=== PATIENT | female | born 1990 | race Caucasian/White ===

== ENCOUNTER 2022-08-18 08:05 | Outpatient (CLI) | payer BC ==
[2022-08-18 09:47] LABS: BHCG - Serum Negative (NEGATIVE); Pregs Control Background? CLEAR/WHITE (CLR/WHITE); Pregs Control Bar Appear? YES (CONTROL BAR)
== END 2022-08-18 08:06 | disposition home or self-care (01) ==
LOC: LABBT 08:05
PROVIDERS: ATTEND Orthopaedic Surgery Hand Surgery
DX: Z01.812 Encounter for preprocedural laboratory examination (principal); M77.8 Other enthesopathies, not elsewhere classified
CPT/HCPCS: 84703

== ENCOUNTER 2022-08-21 12:51 | Day surgery (SDC) | payer BC ==
[2022-08-17 14:54] VITALS: BMI 29.2
[2022-08-21] MEDS ORDERED: Midazolam HCl 2 mg/2 ml Vial ONE (15:32)
[2022-08-21] MEDS ORDERED: fentaNYL PF 100 MCG/2 ML SYRINGE ONE (15:32)
[2022-08-21] MEDS ORDERED: Bupivacaine PF 0.5% 30 ML VIAL ONE (15:33)
[2022-08-21] MEDS ORDERED: Neomycin-Polymyxin 1 ML AMP ONE (15:33)
[2022-08-21] MEDS ORDERED: Bacitracin Zinc Ointment 30 gm TUBE ONE (15:33)
[2022-08-21] MEDS ORDERED: Dexmedetomidine 200 MCG/2 ML VIAL ONE (15:33)
[2022-08-21] MEDS ORDERED: CEFAZOLIN 2 GM VIAL ONE (15:39)
[2022-08-21] MEDS ORDERED: Sodium Chloride 0.9% 100 ML ONE (15:39)
[2022-08-21] MEDS ORDERED: Lidocaine 1% PF 5 ML VIAL ONE (15:49)
[2022-08-21] MEDS ORDERED: Dexamethasone 20 MG/5 ML VIAL ONE (15:49)
[2022-08-21] MEDS ORDERED: PROPOFOL 200 MG/20 ML VIAL ONE (15:49)
[2022-08-21] MEDS ORDERED: Ondansetron PF 4 MG/2 ML Vial ONE (15:49)
[2022-08-21] MEDS ORDERED: Ketorolac Tromethamine 30 MG/ML VIAL ONE (16:54)
== END 2022-08-21 18:00 | disposition home or self-care (01) ==
LOC: SDC 12:51
PROVIDERS: ATTEND Orthopaedic Surgery Hand Surgery
PROC: 0LN60ZZ Release Left Lower Arm and Wrist Tendon, Open Approach (ICD-10-PCS; principal; 2022-08-21)
PROC: 0LB60ZZ Excision of Left Lower Arm and Wrist Tendon, Open Approach (ICD-10-PCS; principal; 2022-08-21)
DX: M65.4 Radial styloid tenosynovitis [de Quervain] (principal); J45.909 Unspecified asthma, uncomplicated; M34.9 Systemic sclerosis, unspecified; M35.1 Other overlap syndromes; E07.9 Disorder of thyroid, unspecified; Z79.3 Long term (current) use of hormonal contraceptives
CPT/HCPCS: J1100; J1885; J2250; J2405; J2704; J3490; S0020